=== PATIENT | male | born 1955 | race Asian ===

== ENCOUNTER 2018-09-26 15:46 | Inpatient (IN) | payer OTHER ==
[~2018-09-26] VITALS: Ht 177.8 cm; Wt 77.8 kg
[~2018-09-26 15:46] MED LIST: COL100 PO; ECO81 PO; FER300 PO; GLU500 PO; NORCO1 TA2 PO; SERO100 PO; VITC PO; ZOC20 PO
[2018-09-26 17:44] LABS: BASOPHIL % 0.7 % (0-2)
[2018-09-26 17:45] LABS: RED CELL DISTRIBUTION WIDTH 15.7 % (11.5-14.5)
[2018-09-26 17:46] LABS: PLATELET COUNT 661 x10^3mcL (130-400)
[2018-09-26 17:51] LABS: CALCIUM 8.7 mg/dL (8.5-10.1); CARBON DIOXIDE 33.3 mmol/L (21-32); CHLORIDE SERUM 99 mmol/L (98-107); CREATININE SERUM 1.2 mg/dL (0.7-1.3); GFR1 > 60 mL/min; GLUCOSE SERUM 286 mg/dL (74-106); POTASSIUM SERUM 4.3 mmol/L (3.5-5.1); SODIUM SERUM 135 mmol/L (136-145)
[2018-09-26 18:01] LABS: ALKALINE PHOSPHATASE 116 U/L (46-116); ALT/SGPT 16 U/L (16-63); AST/SGOT 17 U/L (15-37); BILIRUBIN TOTAL 0.32 mg/dL (0.20-1.00); TOTAL PROTEIN, SERUM 8.6 g/dL (6.4-8.2)
[2018-09-26 18:06] LABS: T3 TOTAL 0.79 ng/mL
[2018-09-26 18:07] LABS: CK-MB < 0.5 ng/mL (0-3.6); CREATINE KINASE 44 U/L (39-308)
[2018-09-26 18:20] LABS: C REACTIVE PROTEIN 17.8 mg/dL (<=0.9)
[2018-09-26 18:27] LABS: FREE T4 1.33 ng/dL (0.76-1.46); FREE THYROXINE INDEX 3.4 ug/dL (1.4-4.5); T4(THYROXINE) 8.3 ug/dL (4.7-13.3)
[2018-09-26 18:34] LABS: ERYTHROCYTE SED RATE 108 mm/hr (0-20)
[2018-09-26 20:20] LABS: PHOSPHOROUS 3.3 mg/dL (2.5-4.9)
[2018-09-26 20:28] LABS: CHOLESTEROL/HDL RATIO 7.6
[2018-09-26 21:19] VITALS: BP 141/710
[2018-09-27 06:04] VITALS: BP 135/77
[2018-09-27 06:28] LABS: BASOPHIL % 0.2 % (0-2)
[2018-09-27 06:49] LABS: CALCIUM 8.4 mg/dL (8.5-10.1); CARBON DIOXIDE 27.5 mmol/L (21-32); CHLORIDE SERUM 102 mmol/L (98-107); CREATININE SERUM 0.9 mg/dL (0.7-1.3); GFR1 > 60 mL/min; GLUCOSE SERUM 175 mg/dL (74-106); MAGNESIUM 1.8 mg/dL (1.8-2.4); PHOSPHOROUS 2.9 mg/dL (2.5-4.9); POTASSIUM SERUM 3.6 mmol/L (3.5-5.1); SODIUM SERUM 139 mmol/L (136-145)
[2018-09-27 08:21] LABS: PLATELET COUNT 625 x10^3mcL (130-400); RED CELL DISTRIBUTION WIDTH 15.4 % (11.5-14.5)
[2018-09-27 09:50] VITALS: BP 119/54
[2018-09-27 11:31] VITALS: Ht 177.8 cm; Wt 77.8 kg
[2018-09-27 13:14] VITALS: BP 124/60
[2018-09-27 17:47] VITALS: BP 138/49
[2018-09-27 21:11] VITALS: BP 124/59
[2018-09-28 06:24] VITALS: BP 135/67
[2018-09-28 07:35] LABS: BASOPHIL % 0.4 % (0-2)
[2018-09-28 07:44] LABS: CALCIUM 8.3 mg/dL (8.5-10.1); CARBON DIOXIDE 29.9 mmol/L (21-32); CREATININE SERUM 1.6 mg/dL (0.7-1.3); POTASSIUM SERUM 3.5 mmol/L (3.5-5.1)
[2018-09-28 07:49] LABS: PLATELET COUNT 718 x10^3mcL (130-400); RED CELL DISTRIBUTION WIDTH 15.9 % (11.5-14.5)
[2018-09-28 09:30] VITALS: BP 115/52
[2018-09-28 12:33] VITALS: BP 125/67
[2018-09-28 16:37] VITALS: BP 116/66
[2018-09-28 21:34] VITALS: BP 107/50
[2018-09-29 06:04] VITALS: BP 103/58
[2018-09-29 07:41] LABS: CALCIUM 8.1 mg/dL (8.5-10.1); CARBON DIOXIDE 27.2 mmol/L (21-32); CREATININE SERUM 1.7 mg/dL (0.7-1.3); POTASSIUM SERUM 3.7 mmol/L (3.5-5.1)
[2018-09-29 07:56] LABS: BASOPHIL % 0.4 % (0-2)
[2018-09-29 08:03] LABS: RED CELL DISTRIBUTION WIDTH 15.9 % (11.5-14.5)
[2018-09-29 09:32] LABS: PLATELET COUNT 734 x10^3mcL (130-400)
[2018-09-29 10:06] VITALS: BP 154/79
[2018-09-29 16:36] VITALS: BP 134/60
[2018-09-29 21:52] VITALS: BP 144/71
[2018-09-30 06:01] VITALS: BP 120/53
[2018-09-30 06:42] LABS: BASOPHIL % 0.3 % (0-2)
[2018-09-30 06:43] LABS: CALCIUM 8.1 mg/dL (8.5-10.1); CARBON DIOXIDE 30.6 mmol/L (21-32); CREATININE SERUM 1.6 mg/dL (0.7-1.3); POTASSIUM SERUM 3.6 mmol/L (3.5-5.1)
[2018-09-30 07:49] LABS: PLATELET COUNT 731 x10^3mcL (130-400); RED CELL DISTRIBUTION WIDTH 16.2 % (11.5-14.5)
[2018-09-30 08:12] VITALS: BP 124/69
[2018-09-30 11:52] VITALS: BP 117/60
[2018-09-30 16:53] VITALS: BP 126/73
[2018-09-30 21:40] VITALS: BP 136/55
[2018-10-01 04:06] VITALS: BP 135/46
[2018-10-01 06:37] LABS: CALCIUM 8.5 mg/dL (8.5-10.1); CARBON DIOXIDE 28.5 mmol/L (21-32); CREATININE SERUM 1.7 mg/dL (0.7-1.3); POTASSIUM SERUM 3.9 mmol/L (3.5-5.1)
[2018-10-01 07:33] LABS: BASOPHIL % 0.3 % (0-2)
[2018-10-01 07:40] LABS: RED CELL DISTRIBUTION WIDTH 16.1 % (11.5-14.5)
[2018-10-01 07:41] LABS: PLATELET COUNT 784 x10^3mcL (130-400)
[2018-10-01 08:40] VITALS: BP 130/59
[2018-10-01 12:16] VITALS: BP 124/60
[2018-10-01 16:19] VITALS: BP 134/70
[2018-10-01 20:50] VITALS: BP 152/72
[2018-10-02 05:58] VITALS: BP 144/74
[2018-10-02 06:25] LABS: BASOPHIL % 1.1 % (0-2)
[2018-10-02 06:45] LABS: CALCIUM 8.4 mg/dL (8.5-10.1); CARBON DIOXIDE 28.2 mmol/L (21-32); CREATININE SERUM 1.5 mg/dL (0.7-1.3); POTASSIUM SERUM 3.5 mmol/L (3.5-5.1)
[2018-10-02 07:17] LABS: RED CELL DISTRIBUTION WIDTH 16.3 % (11.5-14.5)
[2018-10-02 07:18] LABS: PLATELET COUNT 767 x10^3mcL (130-400)
[2018-10-02 09:34] VITALS: BP 141/55
[2018-10-02] MEDS ORDERED: NOVAPLUS ZOSYN1 PD1 IV (12:30)
[2018-10-02 13:35] VITALS: BP 141/55
[2018-10-02 17:36] VITALS: BP 153/66
== END 2018-10-02 18:21 | DRG 720 ==
LOC: ED 15:46 → DU 19:44 → MU 19:44 → DU 09-27 05:48 → MU 09-28 09:25
PROVIDERS: Specialist; ADMIT Family Medicine
PROC: 0Y9M0ZZ Drainage of Right Foot, Open Approach (ICD-10-PCS; principal; 2018-09-28)
DX: A41.9 Sepsis, unspecified organism (principal); N17.0 Acute kidney failure with tubular necrosis; E43 Unspecified severe protein-calorie malnutrition; E11.621 Type 2 diabetes mellitus with foot ulcer; E11.40 Type 2 diabetes mellitus with diabetic neuropathy, unspecified; E86.0 Dehydration; L03.115 Cellulitis of right lower limb; L02.611 Cutaneous abscess of right foot; E87.1 Hypo-osmolality and hyponatremia; E11.69 Type 2 diabetes mellitus with other specified complication; M86.8X7 Other osteomyelitis, ankle and foot; F20.0 Paranoid schizophrenia; B96.4 Proteus (mirabilis) (morganii) as the cause of diseases classified elsewhere; B96.1 Klebsiella pneumoniae [K. pneumoniae] as the cause of diseases classified elsewhere; Z16.12 Extended spectrum beta lactamase (ESBL) resistance; T87.43 Infection of amputation stump, right lower extremity; Y83.5 Amputation of limb(s) as the cause of abnormal reaction of the patient, or of later complication, without mention of misadventure at the time of the procedure; F29 Unspecified psychosis not due to a substance or known physiological condition; L97.519 Non-pressure chronic ulcer of other part of right foot with unspecified severity; Z89.431 Acquired absence of right foot; Z79.82 Long term (current) use of aspirin; Z79.899 Other long term (current) drug therapy; Z68.28 Body mass index [BMI] 28.0-28.9, adult; Y92.098 Other place in other non-institutional residence as the place of occurrence of the external cause; Z91.19 Patient's noncompliance with other medical treatment and regimen; Z79.84 Long term (current) use of oral hypoglycemic drugs
CPT/HCPCS: 36600; 82962; 83880; 84439; G0480; J0295; J0713; J1644; J1815; J2060; J2543; J3370; J7030; J7050; Q0092